=== PATIENT | female | born 1935 | race Caucasian/White ===

== ENCOUNTER 2018-03-02 09:14 | Outpatient (CLI) | payer MEDICARE ==
[2018-03-02] VITALS (14 sets, daily range): BP systolic 67–131; BP diastolic 52–76
[~2018-03-02 09:14] MED LIST: ACET-3068 PO; ATEN-169 PO; CHOL100044 PO; CYAN1TAB41 PO; CYT5T PO; ESCI20TA29 PO; HYDR10TA14 PO; LEVO50TA78 PO; ZOF4T PO
== END 2018-03-02 23:59 | disposition home or self-care (01) ==
LOC: CARD DIAG 09:14
PROVIDERS: ATTEND Internal Medicine Interventional Cardiology
DX: I95.1 Orthostatic hypotension (principal); I10 Essential (primary) hypertension; Z87.891 Personal history of nicotine dependence; Z90.710 Acquired absence of both cervix and uterus
CPT/HCPCS: 93660